=== PATIENT | female | born 1965 | race Caucasian/White ===

== ENCOUNTER 2023-10-21 18:14 | Inpatient (IN) | payer OTHER ==
[~2023-10-21 18:14] MED LIST: Iopamidol 370 76% 100 ML VIAL ONE
[2023-10-21 18:32] LABS: Actual Bicarbonate (HCO3a) 17.7 mEq/L (22-28); Analyzer IN Cardio ER; Base Excess (BEa) -6.9 mEq/L (-2.0 to +3.0); CO2 Tension 33.1 mmHg (35.0-45.0); Calcium, Ionized (arterial) 1.14 mmol/L (1.12-1.30); Carboxyhemoglobin (COHb) 0.3 gm% (0.0-3.0); Hematocrit-ABG 36 % (36.0-47.0); Hemoglobin (Hb) 12.4 g/dL (12.0-16.0); O2 Tension (PaO2), arterial 264.6 mmHg (80.0-100.0); Potassium - ABG Lab 2.85 mmol/L (3.70-5.30); pH, Arterial 7.347 (7.35-7.45)
[2023-10-21 18:34] LABS: Puncture Site RR
[2023-10-21 18:41] LABS: ALV-art Gradient 50.525 mmHg (0-20)
[2023-10-21] MEDS ORDERED: Fentanyl CADD 100 ML IV SCH (18:45)
[2023-10-21 18:49] LABS: Delete Auto Diff?? YES; Hematocrit 40.4 % (36.0-47.0); Hemoglobin 12.4 g/dL (12.0-16.0); Manual Diff?? YES; Mean Corpuscular HGB CONC 30.7 g/dL (32.0-36.0); Mean Corpuscular Hemoglobin 30.4 pg (27.0-31.0); Mean Platelet Volume 10.5 fL (7.4-10.4); Platelet Count 284 10x3/uL (130-400); RBC Distribution Width 13.3 % (11.5-14.5); Red Blood Cell (RBC) Count 4.08 mill/uL (4.20-5.40); White Blood Cell (WBC) Count 26.3 10x3/uL (4.8-10.8)
[2023-10-21 18:54] LABS: Bilirubin Negative (Negative); Blood, Urine Large (Negative); Glucose, Urine (Dipstick) 500 mg/dL (Negative); Ketone, Urine Trace mg/dL (Negative); Leukocyte Negative (Negative); Nitrite Negative (Negative); Protein, Urine (Dipstick) > or equal to 300 mg/dL (Neg-Trace); Urobilinogen 0.2 mg/dL (Less than 2)
[2023-10-21 18:55] LABS: Clarity Cloudy (Clear); Specific Gravity, Urine 1.023 (1.002-1.036)
[2023-10-21] MEDS ORDERED: Potassium Chloride 40 MEQ in Sodium Chloride 0.9% 250 ML 250 ML IVPB SCH (19:00)
[2023-10-21 19:02] LABS: Amphetamine Not Detected (NotDetected); Barbiturates Screen Not Detected (NotDetected); Benzodiazepine Screen Not Detected (NotDetected); Cocaine Metabolite Screen Not Detected (NotDetected); Methadone Not Detected (NotDetected); Methamphetamine Not Detected (NotDetected); Opiate Screen Not Detected (NotDetected); Oxycodone Screen Not Detected (NotDetected); Phencyclidine (PCP) Not Detected (NotDetected); RBC/HPF Greater than 50 HPF (0-3); THC/Cannabinoid Screen Not Detected (NotDetected); Tricyclic Screen Not Detected (NotDetected)
[2023-10-21 19:03] LABS: CAUTI Indications for Culture Alt mental st,lethar
[2023-10-21 19:04] LABS: Bacteria/HPF 3+ HPF (None Seen); Squamous Epithelial None Seen HPF (0-3); Urine Culture Reflex No No
[2023-10-21 19:10] LABS: Band 14 % (5-11); Burr Cells SLIGHT = 2-5 cells HPF (0-1); CellaVision Operator ID LAB.MJL; Eosinophils 1 % (0-10); Lymphocytes 9 % (21-51); Monocytes 6 % (0-10); Neutrophil 70 % (42-75); Nucleated RBC (Manual Ct) 1 % (0); Platelet Adequacy Comment Platelets Normal; Poikilocytosis SLIGHT = 6-15 cells HPF (0-5); Total Cell Count 100
[2023-10-21 19:26] LABS: AST (SGOT) 200 U/L (5-34); Albumin 3.5 g/dL (3.5-5.0); Anion Gap 19 mmol/L (10-20); BUN (Urea Nitrogen) 15 mg/dL (9.8-20.1); Bilirubin, Total 0.6 mg/dL (0.2-1.2); Calc. Creatinine Clearance 0 mL/min (70-130); Calcium 8.5 mg/dL (7.8-10.44); Carbon Dioxide 14 mmol/L (22-29); Chloride 109 mmol/L (98-107); Estimated GFR 78; Globulin 2.3 g/dL (2.4-3.5); Glucose 248 mg/dL (70-105); Potassium 3.1 mmol/L (3.5-5.1); Protein, Total 5.8 g/dL (6.0-8.3); Sodium 139 mmol/L (136-145)
[2023-10-21 19:31] LABS: Alkaline Phosphatase 88 U/L (40-110)
[2023-10-21 19:34] LABS: ALT (SGPT) 277 U/L (8-55)
[2023-10-21 19:36] LABS: Troponin I 0.297 ng/mL (< 0.028)
[2023-10-21] MEDS ORDERED: Clopidogrel Bisulfate 300 MG TAB PO SCH (20:30)
[2023-10-21] MEDS ORDERED: Fentanyl BOLUS 250 ML IVPB PRN (21:15)
[2023-10-21] MEDS ORDERED: Morphine 2 MG/ML VIAL SLOW IVP PRN (21:15)
[2023-10-21] MEDS ORDERED: Propofol BOLUS 1,000 MG/100 ML VIAL IV PRN (21:15)
[2023-10-21] MEDS ORDERED: DISCONTINUE PREVIOUS NARCOTIC PAIN MEDICATIONS AND BENZODIAZEPINES FS SCH (21:15)
[2023-10-21] MEDS ORDERED: Pantoprazole 40 MG VIAL IVP SCH (21:15)
[2023-10-21] MEDS ORDERED: Dextrose 50% Abboject 50 ML SYRINGE SLOW IVP PRN (21:18)
[2023-10-21] MEDS ORDERED: HumaLOG 300 UNITS/3 ML VIAL SC PRN ×2 (21:18)
[2023-10-21] MEDS ORDERED: Glucagon 1 MG/ML KIT IM PRN (21:18)
[2023-10-21] MEDS ORDERED: Dextrose 5% in Water 1,000 ML IV PRN (21:18)
[2023-10-21] MEDS ORDERED: Electrolyte Replacement Protocol 1 EACH FS PRN (21:20)
[2023-10-21] MEDS ORDERED: Amiodarone 450 MG in Dextrose 5% in Water 250 ML IVPB SCH (21:30)
[2023-10-21] MEDS ORDERED: EPINEPHrine 4 MG in Dextrose 5% in Water 250 ML IV SCH (21:30)
[2023-10-21 21:41] LABS: Hematocrit 35.4 % (36.0-47.0); Hemoglobin 11.8 g/dL (12.0-16.0)
[2023-10-21 21:42] LABS: INR-International Normal Ratio 1.1; Prothrombin Time 14.7 sec (12.0-14.7)
[2023-10-21] MEDS: Lorazepam 2 MG/ML VIAL SLOW IVP PRN (21:44)
[2023-10-21] MEDS ORDERED: Ondansetron PF 4 MG/2 ML Vial IVP PRN (21:53)
[2023-10-21 21:54] LABS: Actual Bicarbonate (HCO3a) 16.9 mEq/L (22-28); Base Excess (BEa) -10.6 mEq/L (-2.0 to +3.0); Calcium, Ionized (arterial) 1.13 mmol/L (1.12-1.30); Carboxyhemoglobin (COHb) 0.3 gm% (0.0-3.0); Hematocrit-ABG 36 % (36.0-47.0); Hemoglobin (Hb) 12.2 g/dL (12.0-16.0); O2 Tension (PaO2), arterial 170.7 mmHg (80.0-100.0); Potassium - ABG Lab 3.62 mmol/L (3.70-5.30)
[2023-10-21 21:57] LABS: Puncture Site Arterial Line; pH, Arterial 7.203 (7.35-7.45)
[2023-10-21 21:59] LABS: PTT Greater than 250.0 sec (22.9-36.1)
[2023-10-21 22:03] LABS: Magnesium 1.8 mg/dL (1.6-2.6)
[2023-10-21 22:13] LABS: Troponin I 6.302 ng/mL (< 0.028)
[2023-10-21] MEDS: Sodium Chloride 0.9% 1,000 ML IV SCH (22:38)
[2023-10-21] MEDS ORDERED: Magnesium 2 GM/50 ML(in water) 2 GM in Premix 1 BAG IVPB SCH (23:00)
[2023-10-21] MEDS: Potassium Chloride 20 MEQ in Premix 1 BAG IVPB SCH (23:24)
[2023-10-21] MEDS: Propofol 1,000 MG/100 ML VIAL IV PRN (23:40)
[2023-10-21] MEDS: NOREPINEPHRINE 8 MG/250 ML-D5W 250 ML IVPB SCH (23:43)
[2023-10-22] MEDS: DOBUTamine 500 mg/250 ml 250 ML IVPB SCH ×2 (00:34→17:27)
[2023-10-22] MEDS ORDERED: Piperacillin/Tazobactam 3.375 GM in Sodium Chloride 0.9% 100 ML IVPB SCH ×2 (01:15→06:00)
[2023-10-22] MEDS ORDERED: Vancomycin (BATCH) 2 GM in Premix 1 BAG IVPB SCH (01:30)
[2023-10-22] MEDS: Potassium Chloride 20 MEQ in Premix 1 BAG IVPB SCH (01:36)
[2023-10-22 01:56] LABS: Lactic Acid 3.6 mmol/L (0.5-2.2)
[2023-10-22 04:41] LABS: #Monocytes 1.3 thou/uL (0.11-0.59); #Neutrophils 14.1 thou/uL (1.40-6.50); %Basophils 0.1 % (0.0-1.0); %Lymphocytes 9.2 % (21.0-51.0); %Monocytes 7.7 % (0.0-10.0); %Neutrophils 82.5 % (42.0-75.0); Hematocrit 32.6 % (36.0-47.0); Hemoglobin 10.8 g/dL (12.0-16.0); Mean Corpuscular HGB CONC 33.1 g/dL (32.0-36.0); Mean Corpuscular Hemoglobin 30.3 pg (27.0-31.0); Mean Platelet Volume 9.9 fL (7.4-10.4); Platelet Count 274 10x3/uL (130-400); RBC Distribution Width 13.5 % (11.5-14.5); Red Blood Cell (RBC) Count 3.56 mill/uL (4.20-5.40)
[2023-10-22 05:03] LABS: Mean Corpuscular Volume 91.6 fl (78.0-98.0)
[2023-10-22 05:19] LABS: ALT (SGPT) 244 U/L (8-55); AST (SGOT) 221 U/L (5-34); Albumin 3.4 g/dL (3.5-5.0); Alkaline Phosphatase 74 U/L (40-110); Anion Gap 9 mmol/L (10-20); BUN (Urea Nitrogen) 14 mg/dL (9.8-20.1); Bilirubin, Total 0.7 mg/dL (0.2-1.2); Calc. Creatinine Clearance 89 mL/min (70-130); Calcium 7.6 mg/dL (7.8-10.44); Carbon Dioxide 20 mmol/L (22-29); Chloride 113 mmol/L (98-107); Estimated GFR 81; Globulin 1.8 g/dL (2.4-3.5); Glucose 239 mg/dL (70-105); Magnesium 2.4 mg/dL (1.6-2.6); Potassium 4.9 mmol/L (3.5-5.1); Protein, Total 5.2 g/dL (6.0-8.3); Sodium 137 mmol/L (136-145)
[2023-10-22] MEDS: NOREPINEPHRINE 8 MG/250 ML-D5W 250 ML IVPB SCH ×2 (05:36→10:08)
[2023-10-22] MEDS: Sodium Chloride 0.9% 1,000 ML IV SCH ×2 (06:10→16:23)
[2023-10-22 06:56] LABS: Actual Bicarbonate (HCO3a) 18.6 mEq/L (22-28); Base Excess (BEa) -6.8 mEq/L (-2.0 to +3.0); CO2 Tension 36.7 mmHg (35.0-45.0); Carboxyhemoglobin (COHb) 0.3 gm% (0.0-3.0); Hematocrit-ABG 34 % (36.0-47.0); Hemoglobin (Hb) 11.5 g/dL (12.0-16.0); O2 Tension (PaO2), arterial 146.1 mmHg (80.0-100.0); Potassium - ABG Lab 4.61 mmol/L (3.70-5.30); pH, Arterial 7.323 (7.35-7.45)
[2023-10-22 06:59] LABS: ALV-art Gradient 93.225 mmHg (0-20); Puncture Site Arterial Line
[2023-10-22] MEDS: Propofol 1,000 MG/100 ML VIAL IV PRN (07:51)
[2023-10-22] MEDS: Aspirin Chewable 81 MG TAB PO SCH (09:16)
[2023-10-22] MEDS: Clopidogrel Bisulfate 75 MG TAB PO SCH (09:16)
[2023-10-22] MEDS: Pantoprazole 40 MG VIAL IVP SCH (09:17)
[2023-10-22 10:44] VITALS: BMI 27.7
[2023-10-22] MEDS ORDERED: Vancomycin HCl 750 MG in Sodium Chloride 0.9% 250 ML 250 ML IVPB SCH (13:00)
[2023-10-22] MEDS: Lorazepam 2 MG/ML VIAL SLOW IVP PRN (15:07)
[2023-10-22] MEDS ORDERED: Fentanyl CADD 100 ML IV SCH (17:15)
[2023-10-23] MEDS: Sodium Chloride 0.9% 1,000 ML IV SCH ×3 (01:46→22:11)
[2023-10-23 04:29] LABS: #Monocytes 0.9 thou/uL (0.11-0.59); #Neutrophils 10.6 thou/uL (1.40-6.50); %Basophils 0.3 % (0.0-1.0); %Eosinophils 0.3 % (0.0-10.0); %Lymphocytes 11.9 % (21.0-51.0); %Monocytes 6.9 % (0.0-10.0); %Neutrophils 80.1 % (42.0-75.0); Hematocrit 30.2 % (36.0-47.0); Hemoglobin 9.9 g/dL (12.0-16.0); Mean Corpuscular HGB CONC 32.8 g/dL (32.0-36.0); Mean Corpuscular Hemoglobin 30.1 pg (27.0-31.0); Mean Corpuscular Volume 91.8 fl (78.0-98.0); Mean Platelet Volume 10.2 fL (7.4-10.4); Platelet Count 220 10x3/uL (130-400); Red Blood Cell (RBC) Count 3.29 mill/uL (4.20-5.40); White Blood Cell (WBC) Count 13.2 10x3/uL (4.8-10.8)
[2023-10-23 04:50] LABS: Anion Gap 9 mmol/L (10-20); BUN (Urea Nitrogen) 8 mg/dL (9.8-20.1); Calc. Creatinine Clearance 115 mL/min (70-130); Calcium 7.5 mg/dL (7.8-10.44); Carbon Dioxide 23 mmol/L (22-29); Chloride 109 mmol/L (98-107); Estimated GFR 101; Glucose 95 mg/dL (70-105); Potassium 3.6 mmol/L (3.5-5.1); Sodium 137 mmol/L (136-145)
[2023-10-23 05:00] LABS: Troponin I 8.089 ng/mL (< 0.028)
[2023-10-23 07:11] LABS: Actual Bicarbonate (HCO3a) 22.5 mEq/L (22-28); Base Excess (BEa) -1.3 mEq/L (-2.0 to +3.0); CO2 Tension 34.5 mmHg (35.0-45.0); Calcium, Ionized (arterial) 1.12 mmol/L (1.12-1.30); Carboxyhemoglobin (COHb) 0.1 gm% (0.0-3.0); Hematocrit-ABG 32 % (36.0-47.0); Hemoglobin (Hb) 10.8 g/dL (12.0-16.0); O2 Tension (PaO2), arterial 94.1 mmHg (80.0-100.0); Potassium - ABG Lab 3.66 mmol/L (3.70-5.30); pH, Arterial 7.432 (7.35-7.45)
[2023-10-23 07:34] LABS: Puncture Site Arterial Line
[2023-10-23] MEDS: Pantoprazole 40 MG VIAL IVP SCH (08:37)
[2023-10-23] MEDS: Clopidogrel Bisulfate 75 MG TAB PO SCH (08:37)
[2023-10-23] MEDS: Aspirin Chewable 81 MG TAB PO SCH (08:37)
[2023-10-23] MEDS: Atorvastatin Calcium 40 MG TAB PO SCH (20:16)
[2023-10-24] MEDS ORDERED: traMADol HCl 50 MG TAB PO SCH (03:15)
[2023-10-24 03:48] LABS: #Basophils 0.1 thou/uL (0.0-0.2); #Eosinphils 0.1 thou/uL (0.0-0.7); #Monocytes 1.4 thou/uL (0.11-0.59); #Neutrophils 14.2 thou/uL (1.40-6.50); %Basophils 0.4 % (0.0-1.0); %Eosinophils 0.4 % (0.0-10.0); %Lymphocytes 12.1 % (21.0-51.0); %Monocytes 7.6 % (0.0-10.0); %Neutrophils 78.5 % (42.0-75.0); Hematocrit 34.8 % (36.0-47.0); Hemoglobin 11.6 g/dL (12.0-16.0); Mean Corpuscular HGB CONC 33.3 g/dL (32.0-36.0); Mean Corpuscular Volume 89.9 fl (78.0-98.0); Mean Platelet Volume 10.2 fL (7.4-10.4); Platelet Count 220 10x3/uL (130-400); RBC Distribution Width 14.2 % (11.5-14.5); Red Blood Cell (RBC) Count 3.87 mill/uL (4.20-5.40); White Blood Cell (WBC) Count 18.1 10x3/uL (4.8-10.8)
[2023-10-24 07:53] LABS: Calcium 8.4 mg/dL (7.8-10.44); Chloride 108 mmol/L (98-107); Potassium 4.6 mmol/L (3.5-5.1); Sodium 137 mmol/L (136-145)
[2023-10-24 07:54] LABS: Glucose 77 mg/dL (70-105)
[2023-10-24 07:55] LABS: Anion Gap 17 mmol/L (10-20); Carbon Dioxide 17 mmol/L (22-29)
[2023-10-24 07:57] LABS: Calc. Creatinine Clearance 126 mL/min (70-130); Estimated GFR 104
[2023-10-24 07:58] LABS: BUN (Urea Nitrogen) 10 mg/dL (9.8-20.1)
[2023-10-24] MEDS ORDERED: FLU VACC QS2023-24(6MOS UP)/PF 60 MCG/0.5 ML SYRINGE IM ONE (09:00)
[2023-10-24] MEDS: Clopidogrel Bisulfate 75 MG TAB PO SCH (09:44)
[2023-10-24] MEDS: Aspirin Chewable 81 MG TAB PO SCH (09:44)
[2023-10-24] MEDS: Sodium Chloride 0.9% 1,000 ML IV SCH (10:20)
[2023-10-24] MEDS: Pantoprazole 40 MG VIAL IVP SCH (10:21)
[2023-10-24] MEDS: Atorvastatin Calcium 40 MG TAB PO SCH (20:20)
[2023-10-24] MEDS: Acetaminophen 325 MG TAB PO PRN (20:20)
[2023-10-25] MEDS: Acetaminophen 325 MG TAB PO PRN ×2 (05:33→18:39)
[2023-10-25] MEDS: Clopidogrel Bisulfate 75 MG TAB PO SCH (10:23)
[2023-10-25] MEDS: Aspirin Chewable 81 MG TAB PO SCH (10:23)
[2023-10-25] MEDS ORDERED: Furosemide 40 MG/4 ML VIAL IVP SCH (11:30)
[2023-10-25] MEDS ORDERED: Polyethylene Glycol 3350 17 GM Packet PO SCH (12:15)
[2023-10-25 13:31] LABS: Bacteria/HPF None Seen HPF (None Seen); Bilirubin Negative (Negative); Blood, Urine 1+ (Negative); CAUTI Indications for Culture Fever or rigors; Clarity Clear (Clear); Glucose, Urine (Dipstick) Normal (Negative); Ketone, Urine 40 mg/dL (Negative); Leukocyte Negative Leu/uL (Negative); Nitrite Negative (Negative); Protein, Urine (Dipstick) Negative (Neg-Trace); RBC/HPF 0-3 HPF (0-3); Squamous Epithelial 0-3 HPF (0-3); Urobilinogen Normal mg/dL (Less than 2); WBC/HPF 0-3 HPF (0-3)
[2023-10-25 13:33] LABS: Urine Culture Reflex No No
[2023-10-25] MEDS: Atorvastatin Calcium 40 MG TAB PO SCH (21:41)
[2023-10-25] MEDS: Metoprolol Tartrate 25 MG TAB PO SCH (21:41)
[2023-10-26] MEDS: Clopidogrel Bisulfate 75 MG TAB PO SCH (08:51)
[2023-10-26] MEDS: Aspirin Chewable 81 MG TAB PO SCH (08:51)
[2023-10-26] MEDS: Metoprolol Tartrate 25 MG TAB PO SCH (08:51)
[2023-10-26 09:11] LABS: #Eosinphils 0.2 thou/uL (0.0-0.7); #Monocytes 0.7 thou/uL (0.11-0.59); #Neutrophils 5.8 thou/uL (1.40-6.50); %Basophils 0.5 % (0.0-1.0); %Eosinophils 1.8 % (0.0-10.0); %Lymphocytes 18.8 % (21.0-51.0); %Monocytes 8.6 % (0.0-10.0); %Neutrophils 69.9 % (42.0-75.0); Hematocrit 33.1 % (36.0-47.0); Mean Corpuscular HGB CONC 33.2 g/dL (32.0-36.0); Mean Corpuscular Hemoglobin 30.3 pg (27.0-31.0); Mean Corpuscular Volume 91.2 fl (78.0-98.0); Platelet Count 356 10x3/uL (130-400); RBC Distribution Width 13.1 % (11.5-14.5); Red Blood Cell (RBC) Count 3.63 mill/uL (4.20-5.40); White Blood Cell (WBC) Count 8.2 10x3/uL (4.8-10.8)
[2023-10-26 09:31] LABS: Anion Gap 13 mmol/L (10-20); BUN (Urea Nitrogen) 12 mg/dL (9.8-20.1); Calc. Creatinine Clearance 105 mL/min (70-130); Calcium 9.3 mg/dL (7.8-10.44); Carbon Dioxide 27 mmol/L (22-29); Chloride 103 mmol/L (98-107); Estimated GFR 100; Glucose 152 mg/dL (70-105); Potassium 3.5 mmol/L (3.5-5.1); Sodium 139 mmol/L (136-145)
[2023-10-26] MEDS ORDERED: Potassium Chloride 20 MEQ TAB PO SCH (11:00)
[2023-10-26 11:13] VITALS: BP 111/64; TEMP 98.6
== END 2023-10-26 11:44 | disposition home or self-care (01) | DRG 250 ==
LOC: ERS 18:14 → CCL 18:50 → CCU 20:55 → 2NO 10-24 13:12
PROVIDERS: ADMIT Internal Medicine; ATTEND Internal Medicine
PROC: 0T9B70Z Drainage of Bladder with Drainage Device, Via Natural or Artificial Opening (ICD-10-PCS; principal; 2023-10-21)
PROC: 02703ZZ Dilation of Coronary Artery, One Artery, Percutaneous Approach (ICD-10-PCS; 2023-10-21)
PROC: 0DH67UZ Insertion of Feeding Device into Stomach, Via Natural or Artificial Opening (ICD-10-PCS; 2023-10-21)
PROC: 4A023N7 Measurement of Cardiac Sampling and Pressure, Left Heart, Percutaneous Approach (ICD-10-PCS; 2023-10-21)
PROC: B2151ZZ Fluoroscopy of Left Heart using Low Osmolar Contrast (ICD-10-PCS; 2023-10-21)
PROC: B2111ZZ Fluoroscopy of Multiple Coronary Arteries using Low Osmolar Contrast (ICD-10-PCS; 2023-10-21)
PROC: 4A133R1 Monitoring of Arterial Saturation, Peripheral, Percutaneous Approach (ICD-10-PCS; 2023-10-21)
PROC: 5A1945Z Respiratory Ventilation, 24-96 Consecutive Hours (ICD-10-PCS; 2023-10-21)
PROC: 3E033XZ Introduction of Vasopressor into Peripheral Vein, Percutaneous Approach (ICD-10-PCS; 2023-10-21)
DX: I21.19 ST elevation (STEMI) myocardial infarction involving other coronary artery of inferior wall (principal); I46.9 Cardiac arrest, cause unspecified; R57.0 Cardiogenic shock; J96.01 Acute respiratory failure with hypoxia; R65.11 Systemic inflammatory response syndrome (SIRS) of non-infectious origin with acute organ dysfunction; I51.81 Takotsubo syndrome; E87.20 Acidosis, unspecified; E87.6 Hypokalemia; I49.9 Cardiac arrhythmia, unspecified; Z88.8 Allergy status to other drugs, medicaments and biological substances; Z98.890 Other specified postprocedural states; R31.9 Hematuria, unspecified
CPT/HCPCS: 31500; 36415; 36416; 51702; 71045; 76705; 80048; 80053; 80306; 81001; 82805; 83605; 83735; 83880; 84484; 85025; 85347; 85610; 85730; 86850; 86900; 86901; 87040; 92920; 92950; 93005; 93010; 93306; 93458; 93798; 94002; 94003; 94760; 97139; 99152; 99153; C1725; C1769; C1887; C1894; C9113; J0171; J0282; J1250; J1815; J1940; J2060; J2543; J2704; J3010; J3370; J3475; J3480; J3490; J7050; J7070; Q9967